=== PATIENT | female | born 1985 | race Caucasian/White ===

== ENCOUNTER 2019-07-23 08:36 | Day surgery (SDC) | payer MEDICAID ==
[2019-07-20 16:22] LABS: BASOPHILS % (AUTO) 0.2 % (0-1); EOSINOPHILS # (AUTO) 0.1 X10'3 (0-0.9); LYMPHOCYTES # (AUTO) 3.3 X10'3 (1.1-4.8); LYMPHOCYTES % (AUTO) 41.4 % (21-51); MEAN CORPUSCULAR HEMOGLOBIN 29.9 PG (27.0-31.0); MEAN CORPUSCULAR HGB CONC 33.7 g/dL (33.0-36.5); MEAN CORPUSCULAR VOLUME 88.7 FL (78-98); MEAN PLATELET VOLUME 7.6 FL (7.4-10.4); MONOCYTES # (AUTO) 0.8 X10'3 (0-0.9); MONOCYTES % (AUTO) 9.9 % (2-12); NEUTROPHILS # (AUTO) 3.8 X10'3 (1.8-7.7); NEUTROPHILS % (AUTO) 47.5 % (42-75); PRE OP HEMATOCRIT 39.1 % (35.0-45.0); PRE OP HEMOGLOBIN 13.2 g/dL (12.0-16.0); PRE OP PLATELET COUNT 320 X10'3 (140-440); RED BLOOD COUNT 4.41 X10'6 (4.20-5.60); RED CELL DISTRIBUTION WIDTH 13.5 % (11.5-14.5)
[2019-07-20 16:30] LABS: CLARITY,URINE CLEAR (Clear); COLOR,URINE YELLOW (Yellow); GLUCOSE, URINE NEGATIVE (Neg); KETONES,URINE NEGATIVE (Neg); LEUKOCYTE ESTERASE ,URINE NEGATIVE (Neg); NITRITES, URINE NEGATIVE (Neg); OCCULT BLOOD,URINE TRACE-INTACT (Neg); PROTEIN,URINE NEGATIVE (Neg); UROBILINOGEN,URINE 0.2 E.U/dL (0.2-1.0)
[2019-07-20 16:31] LABS: HCG SERUM QL NEGATIVE
[2019-07-20 16:32] LABS: UA COLLECTION TYPE CLN CATCH MIDSTREAM
[2019-07-20 16:45] LABS: BACTERIA,URINE NONE SEEN /HPF (Neg); RBC,URINE 0-2 /HPF (0-2); SQUAMOUS EPITHELIAL CELL,UR FEW /LPF (FEW); WBC,URINE 0-4 /HPF (0-4)
[2019-07-20 16:46] LABS: ALBUMIN 3.2 G/DL (3.4-5.0); ALBUMIN/GLOBULIN RATIO 0.7 (1.1-1.5); ALKALINE PHOSPHATASE 60 IU/L (46-116); BLOOD UREA NITROGEN 11 MG/DL (7-18); BUN/CREATININE RATIO 13.9 (6.6-38.0); CALCIUM 8.9 MG/DL (8.5-10.1); CHLORIDE 107 MMOL/L (99-107); CREATININE 0.79 MG/DL (0.40-0.90); PRE OP ALT 37 U/L (30-65); PRE OP ANION GAP 9 (8-16); PRE OP AST 19 U/L (10-37); PRE OP BILIRUB, TOTAL 0.2 MG/DL (0.0-1.0); PRE OP GLUCOSE 79 MG/DL (70-104); PRE OP POTASSIUM 3.6 MMOL/L (3.4-5.1); PRE OP SODIUM 143 MMOL/L (135-145); TOTAL CARBON DIOXIDE 27.1 MMOL/L (24-32); TOTAL PROTEIN 7.5 G/DL (6.4-8.2); eGFR 84 ML/MIN
[~2019-07-23] VITALS: Ht 167.6 cm; Wt 83.0 kg
[2019-07-23] VITALS (13 sets, daily range): BP systolic 102–137; BP diastolic 50–78
[~2019-07-23 08:36] MED LIST: MULT-933 PO; ceFOXitin 2 GM ADDVANTGE BAG 50 ML IV ONE; famotidine 20mg tablet PO ONE; ringers solution, lacted 1,000 ML IV SCH; tranexamic acid inj. 1,000 MG in normal saline 100 ML IV ONE
[2019-07-23] MEDS ORDERED: MIDAZolam 5mg/ml 2ml vial IV PRN (09:50)
[2019-07-23 10:09] LABS: PRE OP INR 0.9 INR; PRE OP PROTIME 9.4 SECONDS (9.0-12.0)
[2019-07-23] MEDS ORDERED: ringers solution, lacted 1,000 ML IV SCH (10:11)
[2019-07-23] MEDS ORDERED: fentaNYL/PF 50MCG/1 ML 2ML syringe IV PRN (10:15)
[2019-07-23] MEDS ORDERED: ondansetron/PF 4mg/2ml inj IV PRN (10:15)
[2019-07-23] MEDS ORDERED: morphine 4 MG/ML inj SYRINge IV PRN ×2 (10:15)
[2019-07-23] MEDS ORDERED: hydrALAZINE 20mg/ml inj. IV PRN (10:15)
[2019-07-23] MEDS ORDERED: labetalol 20mg/4ml (5mg/ml) syringe IV PRN (10:15)
[2019-07-23] MEDS ORDERED: BUPIVAcaine/PF 2.5 mg/ml (0.25%) 30ml vial ONE (10:32)
[2019-07-23] MEDS ORDERED: fentaNYL/PF 50MCG/1 ML 2ML syringe ONE (10:39)
[2019-07-23] MEDS ORDERED: midazolam 2 mg/2 ml injection ONE (10:39)
[2019-07-23] MEDS ORDERED: LIDOcaine 2% (20mg/ml) 5ml vial ONE (10:40)
[2019-07-23] MEDS ORDERED: ondansetron/PF 4mg/2ml inj ONE (10:40)
[2019-07-23] MEDS ORDERED: dexamethasone sod phosphate 4mg/ml inj. ONE (10:40)
[2019-07-23] MEDS ORDERED: rocuronium 10mg/ml inj IV ONE (10:40)
[2019-07-23] MEDS ORDERED: propofol inj 20 ML IV ONE (10:40)
--- NOTE | 2019-07-23 10:45 | NUR ---
(1010) PT OFFERED AND DECLINED VERSED FOR ANXIETY AT THIS TIME. TALKING AND LAUGHING WITH BF AT BEDSIDE. (1045) PT REQUESTED AND GIVEN VERSED ORDERED FOR PRE-OP ANXIETY. ANGELIQUE RN PRESENT AND PROCEEDED WITH PT TO THE OR.
[2019-07-23] MEDS: fentaNYL/PF 50MCG/1 ML 2ML syringe IV PRN ×2 (11:50→12:02)
--- NOTE | 2019-07-23 11:50 | NUR ---
Received from OR via BED , accompanied by Anesthesiologist DR ORDAZ and report given by Anesthesiolgist. PATIENT WAKING UP, C/O PAIN SEE EMAR, V/S WNL, NEUROVASCULAR CHECKS INTACT, 20G PIV LUE, SCD ON, 3 BANDAIDS TO LAP SIGHTS OF ABDOMEN AND WITH PERIPAD WITH SCANT DRAINAGE CDI.
[2019-07-23] MEDS ORDERED: oxyCODONE/APAP 5-325mg tablet PO ONE (12:25)
--- NOTE | 2019-07-23 14:00 | NUR ---
PATIENT A&OX4, DENIES PAIN, V/S WNL, NEUROVASCULAR CHECKS INTACT, 20G PIV LUE D/C WITH NO COMPLICATIONS OBSERVED, SCD OFF, 3 BANDAIDS TO LAP SIGHTS OF ABDOMEN CDI. FRESH LASHON PAD GIVEN TO PATIENT. I HAVE REVIEWED D/C INSTRUCTIONS WITH PATIENT AND FAMILY AND THEY HAVE VERBALIZED UNDERSTANDING. PATIENT D/C HOME WITH FAMILY TO TRANSPORT AND ALL BELONGINGS..
== END 2019-07-23 14:00 | disposition home or self-care (01) ==
LOC: PAS 08:36
PROVIDERS: ATTEND Obstetrics & Gynecology
DX: Z30.2 Encounter for sterilization (principal); E66.9 Obesity, unspecified; Z68.30 Body mass index [BMI] 30.0-30.9, adult; Z72.89 Other problems related to lifestyle; Z79.899 Other long term (current) drug therapy; Z79.01 Long term (current) use of anticoagulants
CPT/HCPCS: 36415; 58661; 80053; 81001; 82948; 84703; 85025; 85610; 85730; J0694; J1100; J2001; J2250; J2405; J2704; J3010; J3490; J7120; A4618

== ENCOUNTER 2025-08-08 18:50 | Emergency (ER) | payer MEDICAID ==
[~2025-08-08] VITALS: Ht 167.6 cm; Wt 86.0 kg
[~2025-08-08 18:50] MED LIST changes: -ceFOXitin 2 GM ADDVANTGE BAG 50 ML IV ONE; -famotidine 20mg tablet PO ONE; -ringers solution, lacted 1,000 ML IV SCH; -tranexamic acid inj. 1,000 MG in normal saline 100 ML IV ONE
[2025-08-08 18:56] VITALS: BP 116/48; TEMP 98.6
[2025-08-08 19:35] LABS: MEAN PLATELET VOLUME 7.9 FL (7.4-10.4); RED CELL DISTRIBUTION WIDTH 14.9 % (11.5-14.5)
[2025-08-08 19:47] LABS: CREATININE 0.78 MG/DL (0.40-0.90); TOTAL CARBON DIOXIDE 26.5 MMOL/L (24-32); eCRCL 91 ML/MIN; eGFR 82 ML/MIN
[2025-08-08 19:54] LABS: LEUKOCYTE ESTERASE ,URINE NEGATIVE (Neg); NITRITES, URINE NEGATIVE (Neg); OCCULT BLOOD,URINE SMALL (Neg)
[2025-08-08 19:56] LABS: URINE HCG NEGATIVE (NEG)
[2025-08-08 20:00] LABS: UA COLLECTION TYPE CLN CATCH MIDSTREAM
[2025-08-08 20:01] LABS: AMORPHOUS PHOSPHATES 4+; SQUAMOUS EPITHELIAL CELL,UR NONE SEEN /LPF (FEW)
[2025-08-08] MEDS: ondansetron 4mg rapidly disintigrating tab PO ONE (20:28)
--- NOTE | 2025-08-08 20:52 | Physician Documentation ---
History of Present Illness Chief Complaint: Abdominal Pain Stated Complaint: ABD PAIN Time Seen by MD: 19:58 HPI This is 39-year-old female that presents emergency department for evaluation of abdominal pain times day and a half. Patient reports that she has had multiple episodes of nausea and vomiting with diffuse abdominal pain originating in the epigastric region. She reports belching and passing gas. Patient reports she has had cold chills but is unsure fevers. Patient denies any other symptoms at this time. Medication Reconciliation Allergies: Coded Allergies: No Known Allergies (Unverified , 08/08/25) Scheduled Multivitamin (One Daily Multivitamin), 1 TAB PO DAILY, (Reported) Review of Systems ROS As stated above in the HPI, otherwise all systems are reviewed and negative. Physical Exam Vital Signs: Temperature: 98.6, Source: Temporal, Heart Rate: 85, Respiratory Rate: 15, BP: 116/48, Pulse Oximetry: 98, Weight: 86.000 Physical Exam VITALS: Reviewed and as above. GENERAL: Alert, no apparent distress. HEENT: Normocephalic, atraumatic, PERRL, EOMI, dry mucosa, no erythema RESPIRATORY: Lungs clear, normal breath sounds, no respiratory distress. CHEST: No accessory muscle use, no retractions CV: Regular rate, rhythm, no edema, no murmur, No: JVD GI: Soft, tender with palpation over the epigastric region, bowels sounds present, no rebound, guarding, or rigidity BACK: No CVA tenderness, or swelling MUSCULOSKELETAL No deformities, no edema SKIN: Warm and dry, no rash NEURO: Oriented x4, No motor or sensory deficit PSYCH: Normal mood and affect, no agitation Progress Results/Orders Results/Orders Completed Orders - MERLE WINTER Ondansetron Disint. Tablet (Zofran Odt T (08/08/25 20:25) Medications Received in ER Medications (Trade) Dose Ordered Sig/Emily Route PRN Reason Start Time Stop Time Status Last Admin Dose Admin (Zofran ODT tablet) 4 mg ONCE ONCE PO 08/08/25 20:25 08/08/25 20:26 DC 08/08/25 20:28 4 MG Vital Signs 08/08/25 18:56 Temp 98.6 Pulse 85 Resp 15 B/P (MAP) 116/48 Pulse Ox 98 Laboratory Tests Test 08/08/25 19:13 08/08/25 19:47 White Blood Count 12.6 H Red Blood Count 4.85 Hemoglobin 14.1 Hematocrit 42.5 Mean Corpuscular Volume 87.6 Mean Corpuscular Hemoglobin 29.1 Mean Corpuscular Hemoglobin Concent 33.3 Red Cell Distribution Width 14.9 H Platelet Count 363 Mean Platelet Volume 7.9 Neutrophils (%) (Auto) 77.1 H Lymphocytes (%) (Auto) 17.2 L Monocytes (%) (Auto) 5.3 Eosinophils (%) (Auto) 0.2 Basophils (%) (Auto) 0.2 Neutrophils # (Auto) 9.7 H Lymphocytes # (Auto) 2.2 Monocytes # (Auto) 0.7 Eosinophils # (Auto) 0.0 Basophils # (Auto) 0.0 CBC Comment Sodium Level 139 Potassium Level 3.7 Chloride Level 104 Carbon Dioxide Level 26.5 Anion Gap 9 Blood Urea Nitrogen 10 Creatinine 0.78 Estimated GFR/1.73 m2 82 BUN/Creatinine Ratio 12.8 Glucose Level 107 H Calcium Level 9.3 Total Bilirubin 0.7 Aspartate Amino Transf (AST/SGOT) 17 Alanine Aminotransferase (ALT/SGPT) 21 Alkaline Phosphatase 84 Total Protein 8.5 H Albumin 3.7 Globulin 4.8 H Albumin/Globulin Ratio 0.8 L Lipase 28 Chemistry Comments Urine Specimen Description Cln catch midstream Urine Color Yellow Urine Clarity Cloudy Urine pH 7.0 Urine Specific [place] 1.015 Urine Protein Negative Urine Glucose (UA) Negative Urine Ketones 15 H Urine Occult Blood Small Urine Nitrite Negative Urine Bilirubin Negative Urine Urobilinogen 0.2 Urine Leukocyte Esterase Negative Urine RBC 0-2 Urine WBC None seen Urine Squamous Epithelial Cells None seen Urine Amorphous Phosphates 4+ Urine Bacteria None seen Urine Culture Indicated Not ind Volume Urine Centrifuged 10 ml Urine HCG, Qualitative Negative Urine Comment Medical Decision Making Findings Presentation consistent with acute epigastric abdominal pain likely secondary to gastritis/GERD, plan to send patient home and PMD follow up. Abdominal exam without peritoneal signs. No evidence of acute abdomen at this time. Well appearing. Given work up have low suspicion for acute hepatobiliary disease (including acute cholecystitis or cholangitis), upper GI bleed, acute pancreatitis, gastric perforation, acute infectious processes (pneumonia, hepatitis, pyelonephritis), atypical appendicitis, vascular catastrophe, bowel obstruction or viscus perforation, or acute coronary syndrome. Presentation not consistent with other acute, emergent causes of abdominal pain at this time. We will follow up with her primary care provider. Patient provided strict return precautions. Patient will return to the emergency department with any worsening of her current symptoms or any additional concerning symptoms that we discussed here today i.e. persistent abdominal pain increased abdominal pain fever chills continued nausea vomiting inability to hold down liquids very liquidy diarrhea or any other concerning symptoms. Differential Dx:Considerations: Include: AAA, -Complete, - Incomplete, -Inevitable, -Missed, -Threatened, Abruptio placentae, Angina/[place], Aortic dissection, Appendicitis, Bowel obstruction, Cholangitis, Cholelithasis, Constipation, Diverticular disease, Esophageal rupture, Esophagitis, Gastritis/PUD, Gastroenteritis, GI hemorrhage, Hernia, Hepatitis, Inflammatory BD, Ischemic bowel, Ovarian cyst/torsion, Pancreatitis, PID, Porphyria, Trauma, intraabdominal, Urinary obstruction, Urinary tract infection, Urolithiasis, Other Departure Disposition: 01 HOME / SELF CARE / HOMELESS Impression: Primary Impression: Abdominal pain Additional Impression: Acute gastroenteritis Discharge Instructions: Abdominal Pain (Nonspecific), Viral Gastroenteritis, Adult Additional Instructions: Presentation consistent with acute epigastric abdominal pain likely secondary to gastritis/GERD, plan to send patient home and PMD follow up. Abdominal exam without peritoneal signs. No evidence of acute abdomen at this time. Well appearing. Given work up have low suspicion for acute hepatobiliary disease (including acute cholecystitis or cholangitis), upper GI bleed, acute pancreatitis, gastric perforation, acute infectious processes (pneumonia, hepatitis, pyelonephritis), atypical appendicitis, vascular catastrophe, bowel o bstruction or viscus perforation, or acute coronary syndrome. Presentation not consistent with other acute, emergent causes of abdominal pain at this time. We will follow up with her primary care provider. Patient provided strict return precautions. Patient will return to the emergency department with any worsening of her current symptoms or any additional concerning symptoms that we discussed here today i.e. persistent abdominal pain increased abdominal pain fever chills continued nausea vomiting inability to hold down liquids very liquidy diarrhea or any other concerning symptoms. Referrals: NO PRIMARY CARE PROVIDER (PCP) Education Educated: Patient, Family Educated regarding: diagnosis, treatment, need for follow up Signature Scribe Signature: A Attestation: Scribed for Merle Winter by KEVIN Lentz . 08/08/25 23:02 MERLE WINTER Aug 08, 2025 20:52
[2025-08-08 21:22] VITALS: PULSE 84; RESP 15; O2SAT 99
--- NOTE | 2025-08-08 22:00 | RADIOLOGY REPORT ---
EXAM: US ULTRASOUND OF ABDOMEN HISTORY: Abdominal pain, chills, nausea, vomiting COMPARISON: None TECHNIQUE: Real-time grayscale and color flow images of the abdomen were obtained. FINDINGS: LIVER: Liver measures 14.8 cm craniocaudal. Liver parenchyma is homogeneous in echotexture. No focal lesion is identified. No intrahepatic ductal dilatation. Normal directional flow is seen in the portal vein. GALLBLADDER: There is cholelithiasis. No gallbladder wall edema or pericholecystic fluid. Gallbladder wall thickness is 2 mm. No sonographic Rodriguez sign. COMMON BILE DUCT: 4 mm in caliber. KIDNEYS: The right kidney measures 8.9 cm in length. No hydronephrosis or renal calculi. IMPRESSION: 1. Cholelithiasis without sonographic evidence for acute cholecystitis.
== END 2025-08-08 23:17 | disposition home or self-care (01) ==
LOC: ER 18:50
DX: K52.9 Noninfective gastroenteritis and colitis, unspecified (principal); Z79.899 Other long term (current) drug therapy
CPT/HCPCS: 36415; 76700; 80053; 81001; 81025; 83690; 85025; 99284